=== PATIENT | female | born 1990 | race Caucasian/White ===

== ENCOUNTER → 2016-08-13 | Outpatient (REF) | payer OTHER ==
[~2016-08-13] MED LIST: COLA100C PO; MOTR200T44 PO; PERCOCET PO; RANI15TA PO
[2016-08-13 12:57] LABS: COMPLEMENT C4 24.3 MG/DL (10-40); IMMUNOGLOBULIN E 46.5 IU/ML (<100)
[2016-08-17 08:06] LABS: ALPHA 1 ANTITRYPSIN 195 mg/dL (90-200); D001-IgE D pteronyssinus <0.10 kU/L (Class 0); E001-IgE Cat Epith/Dander < 0.10 kU/L (Class 0); E005-IgE Dog Dander < 0.10 kU/L (Class 0); F002-IgE Milk < 0.10 kU/L (Class 0); F004-IgE Wheat < 0.10 kU/L (Class 0); F013-IgE Peanut < 0.10 kU/L (Class 0); F014-IgE Soybean < 0.10 kU/L (Class 0); F026-IgE Pork < 0.10 kU/L (Class 0); F027-IgE Beef < 0.10 kU/L (Class 0); F245-IgE Egg, Whole < 0.10 kU/L (Class 0); FX02-IgE Food Mix (Sea Foods) Negative (.); G002-IgE Bermuda Grass < 0.10 kU/L (Class 0); G008-IgE Kentucky Bluegrass < 0.10 kU/L (Class 0); M001-IgE Penicillium chrysogen < 0.10 kU/L (Class 0); M002 IgE Cladosporium herbaru < 0.10 kU/L (Class 0); M003 IgE Aspergillus fumigatu < 0.10 kU/L (Class 0); M006-IgE Alternaria alternata < 0.10 kU/L (Class 0); T001-IgE Maple/Box Elder < 0.10 kU/L (Class 0); T003-IgE Common Silver Birch < 0.10 kU/L (Class 0); T007-IgE Oak, White < 0.10 kU/L (Class 0); T008-IgE Elm, American < 0.10 kU/L (Class 0); T015-IgE Ash, White < 0.10 kU/L (Class 0); T041-IgE Hickory, White < 0.10 kU/L (Class 0); W001-IgE Ragweed, Short < 0.10 kU/L (Class 0); W009-IgE Plantain, English < 0.10 kU/L (Class 0); W014-IgE Pigweed, Rough < 0.10 kU/L (Class 0); W018-IgE Sheep Sorrel < 0.10 kU/L (Class 0)
== END ==
LOC: M LABDRAWC 11:48
PROVIDERS: ATTEND Allergy & Immunology
DX: Z01.89 Encounter for other specified special examinations (principal)

== ENCOUNTER → 2016-10-23 | Outpatient (REF) | payer OTHER ==
[~2016-10-23] MED LIST changes: -COLA100C PO; +COLA100C3 PO
== END ==
LOC: M LAB REF 16:58
PROVIDERS: ATTEND Advanced Practice Midwife
DX: Z12.4 Encounter for screening for malignant neoplasm of cervix (principal)

== ENCOUNTER → 2018-01-14 | Outpatient (REF) | payer OTHER | LOC: M LAB REF 13:33 | DX: Z34.81 Encounter for supervision of other normal pregnancy, first trimester (principal) ==

== ENCOUNTER → 2018-02-11 | Outpatient (REF) | payer OTHER | LOC: M LAB REF 13:06 | DX: O34.211 Maternal care for low transverse scar from previous cesarean delivery (principal) | CPT/HCPCS: 87086 ==

== ENCOUNTER → 2018-07-01 | Outpatient (REF) | payer OTHER ==
[~2018-07-01] MED LIST changes: -COLA100C3 PO; +COLA100C5 PO
== END ==
LOC: M LAB REF 13:38
PROVIDERS: ATTEND Advanced Practice Midwife
DX: Z34.83 Encounter for supervision of other normal pregnancy, third trimester (principal)

== ENCOUNTER 2018-07-10 18:12 | Inpatient (IN) | payer OTHER ==
[2018-07-10] VITALS (9 sets, daily range): BP systolic 95–136; BP diastolic 59–76
[~2018-07-10] VITALS: Ht 160 cm; Wt 122.2 kg
[2018-07-10] MEDS ORDERED: OXYTOCIN 30 UNITS IN 0.9% NaCl 500ML IV BAG (J2590) As Ordered ONE (18:15)
[2018-07-10 19:31] LABS: HEMATOCRIT 35.4 % (36.0-47.0); HEMOGLOBIN 11.9 g/dl (12.0-15.5); MEAN CORPUSCULAR HEMOGLOBIN 28.3 pg (27.0-33.0); MEAN CORPUSCULAR HGB CONC 33.6 g/dl (32.0-36.5); MEAN CORPUSCULAR VOLUME 84.3 fl (80.0-96.0); PLATELET COUNT, AUTOMATED 225 10^3/uL (150-450); WHITE BLOOD COUNT 9.3 10^3/uL (4.0-10.0)
[2018-07-10] MEDS ORDERED: RANI15TA PO (19:56)
--- NOTE | 2018-07-10 20:10 | HPE ---
DATE OF ADMISSION: 07/10/2018 HISTORY: A 27-year-old 2, para 1 female at 37-2/7 weeks gestation by last menstrual period (LMP), consistent with a 7-week ultrasound with an estimated date of confinement (EDC) of 07/29/2018, presents with strong regular contractions that occurred starting at around 4:15 p.m. on the day of admission. She had a large gush of fluid, continued leaking at 5:30 p.m. She called an ambulance to get to the hospital from [place]. COURSE: The patient initiated care at 8 weeks gestation on 12/17/2017, and her first trimester blood pressure was 118/66, weight was 238 pounds. course was unremarkable. OBSTETRICAL HISTORY: June 2015: 40 week, vaginal delivery, 8 pound 3 ounce male infant, delivered by section (C section) due to arrest of descent and meconium. MEDICAL HISTORY: Seizure disorder as a child and none since 2010. SURGICAL HISTORY: section. ALLERGIES: 1. CECLOR. 2. TRAMADOL. SOCIAL HISTORY: The patient lives in [place], boyfriend is involved. She denies cigarettes, alcohol, or drug use. FAMILY HISTORY: Noncontributory. PHYSICAL EXAMINATION: Blood pressure is 110/67, pulse 84. She appears significantly uncomfortable. Head and neck exam: Normal. Lungs: Clear. Heart: Regular rate and rhythm. Abdomen: Nontender, gravid. heart tones: Category 1. Sterile vaginal exam: 10 cm, 100% effaced, +2 station, vertex. Extremities: Nontender. LABS: Blood type A positive, Rubella immune, RPR nonreactive, hepatitis B and C negative. Diabetes screen 101. GBS negative. ASSESSMENT: A 27-year-old 2, para 1 female at 37-2/7 weeks gestation, presents with ruptured membranes, in active labor. The patient had a prior section. PLAN: The patient was admitted on 07/10/2018. The patient was planning to have a repeat section; however, at this point, labor is too far advanced and we will not have time to get to the operating room given the rate of progress of labor. Plan is to attempt vaginal delivery.
[2018-07-10] MEDS ORDERED: METHYLERGONOVINE MALEATE 0.2 MG TAB PO PRN (21:00)
[2018-07-10] MEDS ORDERED: DOCUSATE SODIUM 100 MG CAP PO PRN (21:00)
[2018-07-10] MEDS ORDERED: ACETAMINOPHEN 500 MG TAB PO PRN (21:00)
[2018-07-10] MEDS ORDERED: DIBUCAINE 1% OINTMENT 30GM TOP PRN (21:00)
[2018-07-10] MEDS ORDERED: MEASLES,MUMPS,RUBELLA VACCINE INJ (MMR-II) (90707) SC SCH (21:00)
[2018-07-10] MEDS ORDERED: RHOGAM 300 MCG (1500 IU) INJ (J2790) IM SCH (21:00)
[2018-07-10] MEDS ORDERED: OXYTOCIN DRIP 30 UNITS in APPROPRIATE DILUENT 1 EA IV ONE (21:00)
[2018-07-10] MEDS ORDERED: LIDOCAINE 1% MDV 20ML VIAL INFIL ONE (21:00)
[2018-07-10] MEDS: IBUPROFEN 800 MG TAB PO PRN (22:06)
[2018-07-11 06:12] VITALS: BP 120/61
[2018-07-11] MEDS: PRENATAL VITAMINS CHEWABLE TABLET PO SCH (09:20)
[2018-07-11 10:00] VITALS: BP 116/78
--- NOTE | 2018-07-11 12:44 | DN ---
DATE: 07/10/2018 PREDELIVERY DIAGNOSIS: 37-2/7 weeks gestation in labor at trial of labor after . POSTDELIVERY DIAGNOSIS: Delivered. PROCEDURE: Spontaneous vaginal delivery. Vaginal after (). MANUFACTURING LEAD: Dr. Edgar Villareal. ANESTHESIA: None ESTIMATED BLOOD LOSS: 300 mL. FINDINGS: 8 pound, 8 ounce, male infant, Apgars 8 and 9. DELIVERY SUMMARY: After 15 minutes second stage, patient had spontaneous delivery of an 8 pound, 8 ounce male infant with no delivery anesthesia. There was no nuchal cord. Shoulders delivered with ease. The infant cried immediately and was handed to the mother. Placenta delivered spontaneously and appeared to be intact. The patient received IV Pitocin immediately for delivery of the placenta. A second degree perineal laceration was repaired under local anesthesia with #2-0 chromic in the usual fashion. Sponge and needle counts were correct.
[2018-07-11] MEDS: IBUPROFEN 800 MG TAB PO PRN (17:42)
[2018-07-11 18:34] VITALS: BP 112/61
[2018-07-12 06:06] VITALS: BP 113/57
[2018-07-12] MEDS: PRENATAL VITAMINS CHEWABLE TABLET PO SCH (08:43)
[2018-07-12] MEDS ORDERED: MAPA500T2 PO (10:19)
[2018-07-12] MEDS ORDERED: PRENTAB9 PO (10:19)
[2018-07-12] MEDS ORDERED: ADVI200C5 PO (10:21)
[2018-07-12] MEDS ORDERED: COLA100C5 PO (10:38)
== END 2018-07-12 12:40 | disposition home or self-care (01) | DRG 560 ==
LOC: M LDI 18:12 → M OBS 21:11
PROVIDERS: ADMIT Specialist; ATTEND Specialist
PROC: 10E0XZZ Delivery of Products of Conception, External Approach (ICD-10-PCS; principal; 2018-07-10)
PROC: 0KQM0ZZ Repair Perineum Muscle, Open Approach (ICD-10-PCS; 2018-07-10)
DX: O34.211 Maternal care for low transverse scar from previous cesarean delivery (principal); O70.1 Second degree perineal laceration during delivery; Z3A.37 37 weeks gestation of pregnancy; Z37.0 Single live birth

== ENCOUNTER → 2019-11-02 | Outpatient (CLI) | payer OTHER ==
[~2019-11-02] MED LIST changes: +ADVI200C5 PO; +MAPA500T2 PO; +PRENTAB9 PO
== END ==
LOC: M LABSMTC 13:55
PROVIDERS: ATTEND Orthopaedic Surgery Hand Surgery
DX: Z11.59 Encounter for screening for other viral diseases (principal)

== ENCOUNTER → 2020-07-11 | Outpatient (REF) | payer OTHER | LOC: M SFHCWAGY 17:06 | PROVIDERS: ATTEND Nurse Practitioner Family | DX: R30.0 Dysuria (principal) ==

== ENCOUNTER → 2020-10-13 | Outpatient (REF) | payer OTHER | LOC: M SFHCWAGY 17:03 | PROVIDERS: ATTEND Nurse Practitioner Women's Health | DX: Z12.4 Encounter for screening for malignant neoplasm of cervix (principal) ==

== ENCOUNTER → 2021-09-19 | Outpatient (CLI) | payer OTHER ==
[2021-09-19 15:38] LABS: BASO # 0.1 10^3/uL (0.0-0.2); BASO % 0.6 % (0.0-1.0); EOS # 0.1 10^3/uL (0.0-0.5); EOS % 1.4 % (0.0-3.0); HEMATOCRIT 37.9 % (36.0-47.0); HEMOGLOBIN 12.9 g/dl (12.0-15.5); LYMPH # 1.8 10^3/uL (1.5-5.0); MEAN CORPUSCULAR HEMOGLOBIN 30.5 pg (27.0-33.0); MEAN CORPUSCULAR VOLUME 89.6 fl (80.0-96.0); MONO # 0.8 10^3/uL (0.0-0.8); MONO % 8.5 % (2.0-8.0); NEUTROPHILS # 6.3 10^3/uL (1.5-8.5); NEUTROPHILS % 69.1 % (36.0-66.0); PLATELET COUNT, AUTOMATED 249 10^3/uL (150-450); RED BLOOD COUNT 4.23 10^6/uL (4.00-5.40); WHITE BLOOD COUNT 9.1 10^3/uL (4.0-10.0)
[2021-09-19 16:31] LABS: HEPATITIS C VIRUS ABY INDEX 0.1 INDEX (<0.8); HIV 1&2 SCREEN CENTAUR NEGATIVE (NEGATIVE)
[2021-09-19 17:23] LABS: GC DNA AMPLIFICATION NEGATIVE (NEGATIVE)
== END ==
LOC: M PLALAB 13:57
PROVIDERS: ATTEND Obstetrics & Gynecology
DX: Z34.90 Encounter for supervision of normal pregnancy, unspecified, unspecified trimester (principal)

== ENCOUNTER → 2021-10-25 | Outpatient (CLI) | payer OTHER | LOC: M CLY 14:27 | PROVIDERS: ATTEND Nurse Practitioner Family | DX: Z53.9 Procedure and treatment not carried out, unspecified reason (principal) ==

== ENCOUNTER → 2021-10-26 | Outpatient (REF) | payer OTHER, MEDICAID | LOC: M PLALAB 11:59 | PROVIDERS: ATTEND Advanced Practice Midwife | DX: O34.211 Maternal care for low transverse scar from previous cesarean delivery (principal); Z3A.00 Weeks of gestation of pregnancy not specified ==

== ENCOUNTER → 2021-11-14 | Outpatient (CLI) | payer MEDICAID, OTHER | LOC: M WHC 13:49 | PROVIDERS: ATTEND Advanced Practice Midwife | DX: O34.211 Maternal care for low transverse scar from previous cesarean delivery (principal) ==

== ENCOUNTER → 2022-01-25 | Outpatient (CLI) | payer OTHER ==
[2022-01-25 15:47] LABS: MEAN CORPUSCULAR HEMOGLOBIN 31.6 pg (27.0-33.0); MEAN CORPUSCULAR HGB CONC 34.3 g/dl (32.0-36.5); MEAN CORPUSCULAR VOLUME 92.1 fl (80.0-96.0); PLATELET COUNT, AUTOMATED 207 10^3/uL (150-450); WHITE BLOOD COUNT 9.6 10^3/uL (4.0-10.0)
[2022-01-25 17:01] LABS: GC DNA AMPLIFICATION NEGATIVE (NEGATIVE)
== END ==
LOC: M PLALAB 12:42
PROVIDERS: ATTEND Obstetrics & Gynecology
DX: Z3A.24 24 weeks gestation of pregnancy (principal)

== ENCOUNTER → 2022-03-20 | Outpatient (REF) | payer OTHER | LOC: M PLALAB 09:50 | PROVIDERS: ATTEND Obstetrics & Gynecology | DX: Z36.89 Encounter for other specified antenatal screening (principal); Z3A.36 36 weeks gestation of pregnancy ==

== ENCOUNTER 2022-04-03 17:17 | Inpatient (IN) | payer OTHER ==
[~2022-04-03] VITALS: Ht 160 cm; Wt 101.5 kg
[2022-04-03] VITALS (13 sets, daily range): BP systolic 119–141; BP diastolic 62–83
[2022-04-03] MEDS ORDERED: OXYTOCIN INJ 10 UNITS/ML VIAL (J2590) IM ONE (18:00)
[2022-04-03] MEDS ORDERED: HOME MED LIST COMPLETE! XX SCH (18:00)
[2022-04-03] MEDS ORDERED: FAMO20TA PO (18:00)
[2022-04-03] MEDS ORDERED: OXYTOCIN DRIP 30 UNITS in IV 1 EA IV SCH (18:00)
[2022-04-03] MEDS ORDERED: OXYTOCIN INJ 10 UNITS/ML VIAL (J2590) As Ordered ONE (18:02)
[2022-04-03] MEDS ORDERED: OXYTOCIN 30 UNITS IN 0.9% NaCl 500ML IV BAG (J2590) As Ordered ONE (18:02)
[2022-04-03] MEDS ORDERED: CARBOPROST TROMETHAMINE 250 MCG/ML AMP IM PRN (18:10)
[2022-04-03] MEDS ORDERED: LIDOCAINE 1% MDV 20ML VIAL INFIL PRN (18:10)
[2022-04-03] MEDS ORDERED: TRANEXAMIC ACID INJection 1,000 MG in NS 100 ML IV PRN (18:10)
[2022-04-03] MEDS ORDERED: METHYLERGONOVINE MALEATE 0.2 MG/ML VIAL (J2210) IM PRN (18:10)
[2022-04-03 18:25] LABS: HEMATOCRIT 34.2 % (36.0-47.0); HEMOGLOBIN 11.7 g/dl (12.0-15.5); MEAN CORPUSCULAR HEMOGLOBIN 30.2 pg (27.0-33.0); MEAN CORPUSCULAR HGB CONC 34.2 g/dl (32.0-36.5); MEAN CORPUSCULAR VOLUME 88.1 fl (80.0-96.0); PLATELET COUNT, AUTOMATED 232 10^3/uL (150-450); RED BLOOD COUNT 3.88 10^6/uL (4.00-5.40); WHITE BLOOD COUNT 7.7 10^3/uL (4.0-10.0)
[2022-04-03] MEDS ORDERED: RHOGAM 300 MCG (1500 IU) INJ (J2790) IM SCH (18:35)
[2022-04-03] MEDS ORDERED: IBUPROFEN 600MG TAB PO PRN (18:35)
[2022-04-03] MEDS ORDERED: DIBUCAINE 1% OINTMENT 30GM TOP PRN (18:35)
[2022-04-03] MEDS ORDERED: ACETAMINOPHEN 500 MG TAB PO PRN (18:35)
[2022-04-03] MEDS ORDERED: DOCUSATE SODIUM 100MG CAPSULE PO PRN (18:35)
[2022-04-03] MEDS ORDERED: OXYTOCIN DRIP 30 UNITS in IV 1 EA IV ONE (19:15)
[2022-04-03] MEDS ORDERED: ceFAZolin SOD 2 GM in IV 1 EA IV ONE (19:40)
[2022-04-03] MEDS ORDERED: CLINDAMYCIN 900 MG in IV 1 EA IV ONE (19:55)
[2022-04-04 06:00] VITALS: BP 105/57
[2022-04-04] MEDS: PRENATAL VITAMINS CHEWABLE TABLET PO SCH (08:37)
[2022-04-04 17:55] VITALS: BP_SYST 120; BP_SYST 130; BP_DIAS 72; BP_DIAS 75
[2022-04-05 06:10] VITALS: BP 102/65
[2022-04-05 07:30] VITALS: BP 113/70
[2022-04-05] MEDS: PRENATAL VITAMINS CHEWABLE TABLET PO SCH (07:48)
[2022-04-05] MEDS ORDERED: MEASLES,MUMPS,RUBELLA VACCINE INJ (MMR-II) (90707) SC.IMMUN ONE (09:00)
== END 2022-04-05 12:35 | disposition home or self-care (01) | DRG 560 ==
LOC: M LDO 17:17 → M LDI 17:44 → M OBS 21:50
PROVIDERS: ADMIT Obstetrics & Gynecology; ATTEND Obstetrics & Gynecology
PROC: 10E0XZZ Delivery of Products of Conception, External Approach (ICD-10-PCS; principal; 2022-04-03)
PROC: 0KQM0ZZ Repair Perineum Muscle, Open Approach (ICD-10-PCS; 2022-04-03)
PROC: 10907ZC Drainage of Amniotic Fluid, Therapeutic from Products of Conception, Via Natural or Artificial Opening (ICD-10-PCS; 2022-04-03)
DX: O62.3 Precipitate labor (principal); O70.1 Second degree perineal laceration during delivery; Z3A.38 38 weeks gestation of pregnancy; O34.211 Maternal care for low transverse scar from previous cesarean delivery; Z88.1 Allergy status to other antibiotic agents; Z88.5 Allergy status to narcotic agent; Z79.899 Other long term (current) drug therapy; Z37.0 Single live birth

== ENCOUNTER → 2022-06-05 | Outpatient (CLI) | payer OTHER ==
[~2022-06-05] MED LIST changes: +FAMO20TA PO
== END ==
LOC: M LABSMTC 09:12
PROVIDERS: ATTEND Anesthesiology
DX: Z01.812 Encounter for preprocedural laboratory examination (principal); Z11.52 Encounter for screening for COVID-19

== ENCOUNTER 2022-06-08 06:00 | Day surgery (SDC) | payer OTHER ==
[~2022-06-08] VITALS: Ht 160 cm; Wt 95.3 kg
[~2022-06-08 06:00] MED LIST changes: +OMEP-173
[2022-06-08 06:33] LABS: HEMATOCRIT 39.6 % (36.0-47.0); MEAN CORPUSCULAR HGB CONC 32.8 g/dl (32.0-36.5); MEAN CORPUSCULAR VOLUME 91.2 fl (80.0-96.0); PLATELET COUNT, AUTOMATED 243 10^3/uL (150-450); RED BLOOD COUNT 4.34 10^6/uL (4.00-5.40); WHITE BLOOD COUNT 5.3 10^3/uL (4.0-10.0)
[2022-06-08] MEDS ORDERED: LR 1,000 ML IV SCH ×2 (06:40→08:40)
[2022-06-08] MEDS ORDERED: KETOROLAC 60MG 2ML VIAL As Ordered ONE (06:56)
[2022-06-08] MEDS ORDERED: LIDOCAINE 2% 100MG/5ML SDV (FOR ANES.) As Ordered ONE (06:56)
[2022-06-08] MEDS ORDERED: ONDANSETRON 4MG 2ML VIAL As Ordered ONE (06:56)
[2022-06-08] MEDS ORDERED: ROCURONIUM BROMIDE 50MG/5ML VIAL As Ordered ONE (06:56)
[2022-06-08] MEDS ORDERED: propofoL 200 MG/20 ML VIAL As Ordered ONE (06:56)
[2022-06-08] MEDS ORDERED: SUGAMMADEX SODIUM 500 MG/5 ML VIAL (BRIDION) As Ordered ONE (07:00)
[2022-06-08] MEDS ORDERED: MIDAZOLAM INJ 2MG/2ML VIAL As Ordered ONE (07:01)
[2022-06-08] MEDS ORDERED: fentaNYL 100 MCG/2 ML INJECTION As Ordered ONE (07:01)
[2022-06-08] MEDS ORDERED: BUPIVACAINE HCL 0.25% 30ML VIAL As Ordered ONE (07:12)
[2022-06-08] MEDS ORDERED: METOCLOPRAMIDE INJ 10MG/2ML VIAL IV PRN (07:30)
[2022-06-08] MEDS ORDERED: ONDANSETRON 4MG 2ML VIAL IV PRN ×2 (07:30→08:40)
[2022-06-08] MEDS ORDERED: IBUPROFEN 600MG TAB PO PRN (07:30)
[2022-06-08] MEDS ORDERED: ACETAMINOPHEN 500 MG TAB PO PRN (07:30)
[2022-06-08] MEDS ORDERED: ACETAMINOPHEN 1000MG 100ML IV BAG As Ordered ONE (07:42)
[2022-06-08] MEDS ORDERED: oxyCODONE 5MG TAB PO PRN (08:40)
[2022-06-08] MEDS ORDERED: fentaNYL 100 MCG/2 ML INJECTION IV PRN (08:40)
[2022-06-08] MEDS ORDERED: HYDROMORPHONE HCL 0.5 MG/ 0.5 ML SYRINGE IV PRN (08:40)
[2022-06-08 10:20] VITALS: BP 106/59
== END 2022-06-08 11:09 | disposition home or self-care (01) ==
LOC: M SDC 06:00
PROVIDERS: ATTEND Obstetrics & Gynecology
DX: Z30.2 Encounter for sterilization (principal); R56.9 Unspecified convulsions; Z88.1 Allergy status to other antibiotic agents; Z88.5 Allergy status to narcotic agent
CPT/HCPCS: 36415; 58661; 81025; 85027; 86850; 86900; 86901; 88302; J1100; J2405

== ENCOUNTER → 2022-12-24 | Outpatient (REF) | payer OTHER | LOC: M SFHCWAGY 17:20 | PROVIDERS: ATTEND Obstetrics & Gynecology | DX: Z79.899 Other long term (current) drug therapy (principal) ==

== ENCOUNTER → 2024-08-25 | Outpatient (CLI) | payer OTHER | LOC: M RAD 15:12 | PROVIDERS: ATTEND Orthopaedic Surgery Hand Surgery | DX: M25.461 Effusion, right knee (principal) ==